=== PATIENT | female | born 1960 | race Caucasian/White ===

== ENCOUNTER → 2021-03-04 10:33 | Outpatient (BNVA) | payer OTHER, SELFPAY | PROVIDERS: Visit Provider Obstetrics & Gynecology | DX: Z12.4 Encounter for screening for malignant neoplasm of cervix (principal) | CPT/HCPCS: 87624 ==

== ENCOUNTER 2022-09-07 05:14 | Observation (INO) | payer OTHER, SELFPAY ==
[2022-09-07] VITALS (24 sets, daily range): BP systolic 114–181; BP diastolic 60–81; PULSE 60–99; RESP 16–24; TEMP 36.3–37.3; O2SAT 90–97; BMI 39.1; BMI 39.6
--- NOTE | 2022-09-07 05:22 | CTR_ITS ---
PROCEDURE INFORMATION: Exam: CT Abdomen And Pelvis With Contrast Exam date and time: 09/07/2022 6:11 AM Age: 62 years old Clinical indication: Abdominal pain; Localized; Right lower quadrant (rlq); Additional info: Rlq pain TECHNIQUE: Imaging protocol: Computed tomography of the abdomen and pelvis with contrast. Radiation optimization: All CT scans at this facility use at least one of these dose optimization techniques: automated exposure control; mA and/or kV adjustment per patient size (includes targeted exams where dose is matched to clinical indication); or iterative reconstruction. Contrast material: OMNI 350; Contrast volume: 100 ml; Contrast route: INTRAVENOUS (IV); REPORTING DATA: Count of CT and Cardiac NM exams in prior 12 months: This patient has received 0 known CTs and 0 known cardiac nuclear medicine studies in the 12 months prior to the current study. COMPARISON: No relevant prior studies available. RADIATION DOSE METRICS: Total DLP (mGy-cm): 960.61 FINDINGS: Lungs: Lung bases are clear. Diaphragm: There is a small sliding-type hiatal hernia. Liver: The liver is normal. Gallbladder and bile ducts: The gallbladder is normal. There is no biliary dilation. Pancreas: The pancreas is unremarkable. Spleen: The spleen is mildly enlarged. There is a 9 mm hypodense nodule in the spleen. Adrenal glands: The adrenal glands are unremarkable. Kidneys and ureters: The kidneys are unremarkable. No hydronephrosis or stones. No ureteral dilation. Stomach and bowel: The stomach is decompressed, preventing meaningful evaluation of wall thickness. The small bowel is nondilated. The colon is unremarkable. Appendix: The appendix is markedly dilated measuring up to 18 mm diameter. There is a 10 mm appendicolith at its origin. There is periappendiceal edema and fascial thickening. No extraluminal gas or fluid collection. Intraperitoneal space: There is no free air or significant intraperitoneal free fluid. Vasculature: The aorta is unremarkable. There is no aneurysm. The portal, splenic and superior mesenteric veins are patent. Lymph nodes: There is no lymphadenopathy in the retroperitoneum, mesentery, pelvis or inguinal regions. Urinary bladder: The urinary bladder is unremarkable. Reproductive: There is no adnexal mass or large cyst. Bones/joints: There is mild degenerative disease of both hips. The bony pelvis is intact. There is mild degenerative disease in the lumbar spine. Soft tissues: The abdominal wall is intact. CT/CT abdomen pelvis w con* [id number] IMPRESSION: 1. Acute appendicitis. No sign of perforation. 2. 9 mm hypodense splenic nodule. For patients without or with history of cancer, recommend follow-up MRI in 6-12 months. 3. Incidental findings above.
--- NOTE | 2022-09-07 05:23 | W.ED.ABDPA2 ---
Documented by User: Marisabel Calvin MD 09/07/22 05:25 HPI - Abdominal Pain General: Chief Complaint: Abdominal Pain Stated Complaint: abd pain Time Seen by Provider: 09/07/22 05:16 Source: patient Mode of arrival: ambulatory Limitations: no limitations History of Present Illness: 62-year-old female who states she has been having lower abdominal pain over the last 12 hours. States pain is very sharp in nature mainly in the right lower quadrant she has had some nausea and vomited once. She rates her pain an 8 out of 10 its much worse with movement and palpation. She denies any fevers denies any dysuria. Associated Symptoms: Reports nausea and vomiting; Denies chills, dysuria and fever(s) Review of Systems Const: Denies: fever(s) or chills Eyes: Denies: eye discomfort ENMT: Denies: throat pain or dental pain Card: Denies: chest pain Resp: Denies: dyspnea GI: Reports: abdominal pain, nausea and vomiting : Denies: dysuria Musc: Denies: neck pain or back pain Skin/Breast: Denies: rash Neuro: Denies: headache(s) PFSH ED PFSH: Medical History Arthritis Asthma Bipolar disorder Cataract Clinical depression COPD (chronic obstructive pulmonary disease) Diabetes Eczema Fibromyalgia GERD (gastroesophageal reflux disease) High risk HPV infection Lichen simplex Psoriasis Urinary incontinence, urge Surgical History H/O oral surgery tongue and back of throat-11/2019-determined non-cancerous from HPV H/O oral surgery removal of damaged tooth H/O right knee surgery H/O shoulder surgery right H/O wisdom tooth extraction History of carpal tunnel surgery Family History Mother CAD (coronary artery disease) Cancer lung cancer Diabetes Father CAD (coronary artery disease) Cancer lung cancer, bladder Diabetes Brother Diabetes Denies family history of Clotting disorder Hyperlipidemia Chronic kidney disease (CKD) Bleeding disorder Physical Exam Const: COMMON NORMALS: patient oriented x3 HENMT: COMMON NORMALS: normocephalic and atraumatic HEAD & SCALP: normocephalic and atraumatic Eye: COMMON NORMALS: conjunctivae normal CONJUNCTIVA: Yes conjunctivae normal Neck/C-Spine: COMMON NORMALS: full ROM and supple Chest: COMMONS NORMALS: normal inspection of the chest Resp: COMMON NORMALS: normal respiratory effort Cardio: COMMON NORMALS: regular rate, regular rhythm and No murmurs present (Cardio) RATE: regular rate RHYTHM: regular rhythm GI: COMMON NORMALS: Normal to inspection, nondistended, normoactive bowel sounds present, Soft to palpation and no masses PALPATION: Yes Soft to palpation and Yes Tenderness to palpation present (GI) Details: RLQ Extremity: COMMON NORMALS: normal to inspection and full ROM Neuro: COMMON NORMALS: patient oriented x3, moves all extremities and no focal motor deficits Psych: COMMON NORMALS: mental status grossly normal, Normal thought process present and cooperative THOUGHT PROCESS: Normal thought process present Skin: COMMON NORMALS: no rashes or lesions noted and no wounds GENERAL SKIN EXAM: no rashes or lesions noted Course Vital Signs: Vital signs: Vital Signs Temperature 98.4 F 09/07/22 05:42 Pulse Rate 76 09/07/22 06:34 Respiratory Rate 16 09/07/22 05:40 Blood Pressure 147/62 09/07/22 07:31 Pulse Oximetry 94 09/07/22 07:31 Oxygen Delivery Me thod Room Air 09/07/22 05:19 MDM - Abdominal Pain Lab Data 09/07/22 05:30 09/07/22 05:30 Labs/Radiology: Radiology Impressions Abdomen/Pelvis CT 09/07/22 05:22 IMPRESSION: 1. Acute appendicitis. No sign of perforation. 2. 9 mm hypodense splenic nodule. For patients without or with history of cancer, recommend follow-up MRI in 6-12 months. 3. Incidental findings above. ADDENDUM: 09/07/22 0731 THIS REPORT CONTAINS FINDINGS THAT MAY BE CRITICAL TO PATIENT CARE. The findings were communicated via written report. Receipt and understanding of the findings was acknowledged by Dr Garcia at 7:30 AM CDT on 09/07/2022. Laboratory Results WBC 11.6 10^3/uL (4.0-10.0) H 09/07/22 05:30 RBC 5.10 10^6/uL (4.1-5.3) 09/07/22 05:30 Hgb 15.3 g/dL (11.5-15.3) 09/07/22 05:30 Hct 45.1 % (37.0-47.0) 09/07/22 05:30 MCV 88.4 fl (81-99) 09/07/22 05:30 MCH 30.0 pg (28.0-34.0) 09/07/22 05:30 MCHC 33.9 g/dL (30.0-36.0) 09/07/22 05:30 RDW 12.0 % (12.1-15.1) L 09/07/22 05:30 Plt Count 273 10^3/cmm (130-400) 09/07/22 05:30 MPV 10.2 fL (7.4-10.4) 09/07/22 05:30 Neut % (Auto) 82.6 % 09/07/22 05:30 Lymph % (Auto) 9.1 % 09/07/22 05:30 [facility] % (Auto) 6.8 % 09/07/22 05:30 Eos % (Auto) 0.9 % 09/07/22 05:30 Baso % (Auto) 0.3 % 09/07/22 05:30 Neut # (Auto) 9.57 10^3/uL (1.8-7.7) H 09/07/22 05:30 Lymph # (Auto) 1.1 10^3/uL (0.8-4.8) 09/07/22 05:30 [facility] # (Auto) 0.8 10^3/uL (0.2-0.9) 09/07/22 05:30 Eos # (Auto) 0.1 10^3/uL (0.0-0.8) 09/07/22 05:30 Baso # (Auto) 0.0 10^3/uL (0.0-0.1) 09/07/22 05:30 Nucleated RBC % (auto) 0 % 09/07/22 05:30 Nucleated RBCs # 0.0 /100WBC 09/07/22 05:30 Sodium 134 mmol/L (136-145) L 09/07/22 05:30 Potassium 4.3 mmol/L (3.5-5.1) 09/07/22 05:30 Chloride 96 mmol/L (98-107) L 09/07/22 05:30 Carbon Dioxide 25 mmol/L (22-29) 09/07/22 05:30 Anion Gap 17.3 (5-19) 09/07/22 05:30 BUN 11 mg/dL (8-23) 09/07/22 05:30 Creatinine 0.5 mg/dL (0.5-0.9) 09/07/22 05:30 GFR Calculation 124.6 mL/min (90-130) 09/07/22 05:30 Glucose 381 mg/dL (65-115) H 09/07/22 05:30 Calculated Osmolality 293 mOsm/kg (285-295) 09/07/22 05:30 Calcium 9.5 mg/dL (8.5-10.5) 09/07/22 05:30 Total Bilirubin 0.5 mg/dL (0.15-1.2) 09/07/22 05:30 AST 13 U/L (0-32) 09/07/22 05:30 ALT 18 U/L (0-33) 09/07/22 05:30 Alkaline Phosphatase 134 U/L (35-105) H 09/07/22 05:30 Total Protein 7.2 g/dL (6.6-8.7) 09/07/22 05:30 Albumin 4.5 g/dL (3.5-5.2) 09/07/22 05:30 Globulin 2.7 g/dL (1.3-4.6) 09/07/22 05:30 Lipase 32 U/L (13-60) 09/07/22 05:30 Urine Color Light yellow (Yellow) 09/07/22 06:33 Urine Appearance Clear (CLEAR) 09/07/22 06:33 Urine pH 6 (5-7) 09/07/22 06:33 Ur Specific [place] 1.015 (1.005-1.030) 09/07/22 06:33 Urine Protein Neg (Negative) 09/07/22 06:33 Urine Glucose (UA) 4+ (Normal) H 09/07/22 06:33 Urine Ketones 2+ (Negative) H 09/07/22 06:33 Urine Blood Neg (Negative) 09/07/22 06:33 Urine Nitrate Negative (Negative) 09/07/22 06:33 Urine Bilirubin Neg (Negative) 09/07/22 06:33 Urine Urobilinogen Neg mg/dL (Negative) 09/07/22 06:33 Ur Leukocyte Esterase Negative (Negative) 09/07/22 06:33 Discharge Plan Discharge Patient Disposition: Admitted As Inpatient Clinical Impression: Acute appendicitis, Uncontrolled diabetes mellitus Condition: Stable Prescriptions: No Action Toujeo Max U-300 SoloStar 300 unit/mL (3 mL) insulin pen 42 unit SUBCUT DAILY omeprazole 20 mg capsule,delayed release(DR/EC) 20 mg PO DAILY albuterol sulfate [ProAir HFA] 90 mcg/actuation HFA aerosol inhaler 2 puff inhalation Q6H PRN bupropion HCl 150 mg tablet extended release 24 hr 150 mg PO QAM diclofenac sodium [Arthritis Pain (diclofenac)] 1 % gel 2 g topical QID Rx Instructions: apply to single elbow, wrist or hand; for hand includes palm/fingers/back of hand vitamin B complex [B Complex-Vitamin B12] Tablet 1 tab PO DAILY biotin 5 mg capsule 5 mg PO DAILY turmeric 400 mg capsule 400 mg PO DAILY clobetasol 0.05 % cream 1 applic topical BID 14 Days Qty: 45 0RF Rx Instructions: use twice daily for two weeks only and then twice a week after that. Referrals: Cj Avalos MD [Staff Physician] - Sign Out Sign Out Data: Patient Sign Out occurred on 09/07/22 at 06:29. Patient's care was discussed, and care was transferred from to Qmaar Garcia DO. 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 [place] [facility] Documented by User: Qamar Garcia DO 09/07/22 07:43 HPI - Abdominal Pain General: Chief Complaint: Abdominal Pain Stated Complaint: abd pain Time Seen by Provider: 09/07/22 05:16 PFSH ED PFSH: Medical History Arthritis Asthma Bipolar disorder Cataract Clinical depression COPD (chronic obstructive pulmonary disease) Diabetes Eczema Fibromyalgia GERD (gastroesophageal reflux disease) High risk HPV infection Lichen simplex Psoriasis Urinary incontinence, urge Surgical History H/O oral surgery tongue and back of throat-11/2019-determined non-cancerous from HPV H/O oral surgery removal of damaged tooth H/O right knee surgery H/O shoulder surgery right H/O wisdom tooth extraction History of carpal tunnel surgery Family History Mother CAD (coronary artery disease) Cancer lung cancer Diabetes Father CAD (coronary artery disease) Cancer lung cancer, bladder Diabetes Brother Diabetes Denies family history of Clotting disorder Hyperlipidemia Chronic kidney disease (CKD) Bleeding disorder Course Vital Signs: Vital signs: Vital Signs Temperature 98.4 F 09/07/22 05:42 Pulse Rate 76 09/07/22 06:34 Respiratory Rate 16 09/07/22 05:40 Blood Pressure 147/62 09/07/22 07:31 Pulse Oximetry 94 09/07/22 07:31 Oxygen Delivery Me thod Room Air 09/07/22 05:19 MDM - Abdominal Pain Medical Decision Making Care assumed at change of shift. 5-year-old female with right lower quadrant abdominal pain began yesterday for last meal was around 8 or 9:00 last night she is not any blood thinners she has untreated diabetes mellitus she reports significant weight loss in last year blood sugar on arrival here is 318. CT shows acute appendicitis. Patient hungry and given another dose of morphine as well as a dose of Zosyn. Discussed with Dr. Puente consult medicine for diabetic control. Medical Records I reviewed the patient's medical records. Lab Data I reviewed the patient's lab results. 09/07/22 05:30 09/07/22 05:30 Labs/Radiology: Radiology Impressions Abdomen/Pelvis CT 09/07/22 05:22 IMPRESSION: 1. Acute appendicitis. No sign of perforation. 2. 9 mm hypodense splenic nodule. For patients without or with history of cancer, recommend follow-up MRI in 6-12 months. 3. Incidental findings above. ADDENDUM: 09/07/22 0731 THIS REPORT CONTAINS FINDINGS THAT MAY BE CRITICAL TO PATIENT CARE. The findings were communicated via written report. Receipt and understanding of the findings was acknowledged by Dr Garcia at 7:30 AM CDT on 09/07/2022. Laboratory Results WBC 11.6 10^3/uL (4.0-10.0) H 09/07/22 05:30 RBC 5.10 10^6/uL (4.1-5.3) 09/07/22 05:30 Hgb 15.3 g/dL (11.5-15.3) 09/07/22 05:30 Hct 45.1 % (37.0-47.0) 09/07/22 05:30 MCV 88.4 fl (81-99) 09/07/22 05:30 MCH 30.0 pg (28.0-34.0) 09/07/22 05:30 MCHC 33.9 g/dL (30.0-36.0) 09/07/22 05:30 RDW 12.0 % (12.1-15.1) L 09/07/22 05:30 Plt Count 273 10^3/cmm (130-400) 09/07/22 05:30 MPV 10.2 fL (7.4-10.4) 09/07/22 05:30 Neut % (Auto) 82.6 % 09/07/22 05:30 Lymph % (Auto) 9.1 % 09/07/22 05:30 [facility] % (Auto) 6.8 % 09/07/22 05:30 Eos % (Auto) 0.9 % 09/07/22 05:30 Baso % (Auto) 0.3 % 09/07/22 05:30 Neut # (Auto) 9.57 10^3/uL (1.8-7.7) H 09/07/22 05:30 Lymph # (Auto) 1.1 10^3/uL (0.8-4.8) 09/07/22 05:30 [facility] # (Auto) 0.8 10^3/uL (0.2-0.9) 09/07/22 05:30 Eos # (Auto) 0.1 10^3/uL (0.0-0.8) 09/07/22 05:30 Baso # (Auto) 0.0 10^3/uL (0.0-0.1) 09/07/22 05:30 Nucleated RBC % (auto) 0 % 09/07/22 05:30 Nucleated RBCs # 0.0 /100WBC 09/07/22 05:30 Sodium 134 mmol/L (136-145) L 09/07/22 05:30 Potassium 4.3 mmol/L (3.5-5.1) 09/07/22 05:30 Chloride 96 mmol/L (98-107) L 09/07/22 05:30 Carbon Dioxide 25 mmol/L (22-29) 09/07/22 05:30 Anion Gap 17.3 (5-19) 09/07/22 05:30 BUN 11 mg/dL (8-23) 09/07/22 05:30 Creatinine 0.5 mg/dL (0.5-0.9) 09/07/22 05:30 GFR Calculation 124.6 mL/min (90-130) 09/07/22 05:30 Glucose 381 mg/dL (65-115) H 09/07/22 05:30 Calculated Osmolality 293 mOsm/kg (285-295) 09/07/22 05:30 Calcium 9.5 mg/dL (8.5-10.5) 09/07/22 05:30 Total Bilirubin 0.5 mg/dL (0.15-1.2) 09/07/22 05:30 AST 13 U/L (0-32) 09/07/22 05:30 ALT 18 U/L (0-33) 09/07/22 05:30 Alkaline Phosphatase 134 U/L (35-105) H 09/07/22 05:30 Total Protein 7.2 g/dL (6.6-8.7) 09/07/22 05:30 Albumin 4.5 g/dL (3.5-5.2) 09/07/22 05:30 Globulin 2.7 g/dL (1.3-4.6) 09/07/22 05:30 Lipase 32 U/L (13-60) 09/07/22 05:30 Urine Color Light yellow (Yellow) 09/07/22 06:33 Urine Appearance Clear (CLEAR) 09/07/22 06:33 Urine pH 6 (5-7) 09/07/22 06:33 Ur Specific [place] 1.015 (1.005-1.030) 09/07/22 06:33 Urine Protein Neg (Negative) 09/07/22 06:33 Urine Glucose (UA) 4+ (Normal) H 09/07/22 06:33 Urine Ketones 2+ (Negative) H 09/07/22 06:33 Urine Blood Neg (Negative) 09/07/22 06:33 Urine Nitrate Negative (Negative) 09/07/22 06:33 Urine Bilirubin Neg (Negative) 09/07/22 06:33 Urine Urobilinogen Neg mg/dL (Negative) 09/07/22 06:33 Ur Leukocyte Esterase Negative (Negative) 09/07/22 06:33 Discharge Plan Discharge Patient Disposition: Admitted As Inpatient Clinical Impression: Acute appendicitis, Uncontrolled diabetes mellitus Condition: Stable Prescriptions: No Action Toujeo Max U-300 SoloStar 300 unit/mL (3 mL) insulin pen 42 unit SUBCUT DAILY omeprazole 20 mg capsule,delayed release(DR/EC) 20 mg PO DAILY albuterol sulfate [ProAir HFA] 90 mcg/actuation HFA aerosol inhaler 2 puff inhalation Q6H PRN bupropion HCl 150 mg tablet extended release 24 hr 150 mg PO QAM diclofenac sodium [Arthritis Pain (diclofenac)] 1 % gel 2 g topical QID Rx Instructions: apply to single elbow, wrist or hand; for hand includes palm/fingers/back of hand vitamin B complex [B Complex-Vitamin B12] Tablet 1 tab PO DAILY biotin 5 mg capsule 5 mg PO DAILY turmeric 400 mg capsule 400 mg PO DAILY clobetasol 0.05 % cream 1 applic topical BID 14 Days Qty: 45 0RF Rx Instructions: use twice daily for two weeks only and then twice a week after that. Referrals: Cj Avalos MD [Staff Physician] - Sign Out Sign Out Data: Patient Sign Out occurred on 09/07/22 at 06:29. Patient's care was discussed, and care was transferred from to Qamar Garcia DO. 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 [place]
[2022-09-07] MEDS: morphine 4 mg/mL SDV 1 mL IVP ×3 (05:36→11:29)
[2022-09-07] MEDS: ondansetron 2 mg/ML SDV 2 mL 4 MG IVP (05:37)
[2022-09-07] MEDS: sodium chloride 0.9% 1,000 ML 999 ML IV (05:37)
[2022-09-07 05:45] LABS: Basophils % 0.3 %; Eosinophils # 0.1 10^3/uL (0.0-0.8); Eosinophils % 0.9 %; Hematocrit 45.1 % (37.0-47.0); Hemoglobin 15.3 g/dL (11.5-15.3); Lymphocytes # 1.1 10^3/uL (0.8-4.8); Lymphocytes % 9.1 %; Mean Corpuscular HGB Conc 33.9 g/dL (30.0-36.0); Mean Corpuscular Volume 88.4 fl (81-99); Mean Platelet Volume 10.2 fL (7.4-10.4); Monocytes # 0.8 10^3/uL (0.2-0.9); Monocytes % 6.8 %; Neutrophils # 9.57 10^3/uL (1.8-7.7); Neutrophils % 82.6 %; Nucleated Red Blood Cells % 0 %; Platelet Count 273 10^3/cmm (130-400); White Blood Count 11.6 10^3/uL (4.0-10.0)
[2022-09-07 06:03] LABS: Alanine Aminotransferase 18 U/L (0-33); Albumin Level 4.5 g/dL (3.5-5.2); Alkaline Phosphatase 134 U/L (35-105); Aspartate Amino Transferase 13 U/L (0-32); Blood Urea Nitrogen 11 mg/dL (8-23); Calcium 9.5 mg/dL (8.5-10.5); Carbon Dioxide 25 mmol/L (22-29); Chloride 96 mmol/L (98-107); Globulin 2.7 g/dL (1.3-4.6); Glomerular Filtration Rate 124.6 mL/min (90-130); Glucose 381 mg/dL (65-115); Lipase 32 U/L (13-60); Osmolality Calculated 293 mOsm/kg (285-295); Sodium 134 mmol/L (136-145); Total Bilirubin 0.5 mg/dL (0.15-1.2); Total Protein 7.2 g/dL (6.6-8.7)
[2022-09-07 06:07] LABS: Anion Gap 17.3 (5-19); Potassium 4.3 mmol/L (3.5-5.1)
[2022-09-07] MEDS: iohexol 350 mg/mL 500 mL Btl (per mL) IV (06:15)
[2022-09-07 06:39] LABS: Add Urine Microscopic? NO; Charge for UA Resulting for Rev
--- NOTE | 2022-09-07 06:55 | PC.NURSE ---
Patient has sleep apnea, oxygen dips down in the 80's and right back to high 90's.
[2022-09-07 06:59] LABS: Bilirubin Urine Neg (Negative); Blood Urine Neg (Negative); Glucose Urine UA 4+ (Normal); Ketones Urine 2+ (Negative); Leukocyte Esterase Urine Negative (Negative); Nitrate Urine Negative (Negative); Protein Urine Neg (Negative); Specific Gravity, Urine 1.015 (1.005-1.030); Urine Appearance Clear (CLEAR); Urine Color Light yellow (Yellow); Urobilinogen Urine Neg (Negative); pH Urine 6 (5-7)
[2022-09-07] MEDS: piperacillin-tazobactam 3.375 GM in sodium chloride 0.9% (plus) 50 ML IV ×2 (07:42→13:56)
--- NOTE | 2022-09-07 07:52 | ECG_ITS ---
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 Measurements Intervals Bob White Rate: 77 P: 46 OR: 201 QRS: -12 QRSD: 83 T: 20 QT: 383 QTc: 436 Interpretive Statements SINUS RHYTHM POSSIBLE LEFT ATRIAL ENLARGEMENT [-0.1mV P-WAVE IN V1/V2] LOW QRS VOLTAGE IN PRECORDIAL LEADS [QRS DEFLECTION < 1.0 mV IN CHEST LEADS] POSSIBLE ANTERIOR MYOCARDIAL INFARCTION , PROBABLY OLD [30 ms Q WAVE IN V3/V4, OR R < 0.2 mV IN V4] INFERIOR MYOCARDIAL INFARCTION , PROBABLY OLD [40+ ms Q WAVE AND/OR ST/T ABNORMALITY IN II/aVF] No previous ECG available for comparison Electronically Signed On 09-07-2022 21:19:42 CDT by Refugio Massey M.D. [email or web address]
[2022-09-07 08:24] LABS: Estmated Average Glucose 344; Hemoglobin A1C 13.6 % (4.0-6.0)
[2022-09-07 08:28] LABS: Thyroid Stimulating Hormone 3.91 uIU/mL (0.27-4.20)
--- NOTE | 2022-09-07 08:31 | P.CONIM_ITS ---
Providers/Reason For Consult Consulting Physician/Specialty*: Josias Rios MD, hospitalist Reason for Consult*: Medical management, diabetes History of Present Illness History of Present Illness Asha Siddiqui is a 62 year old female with history of diabetes, COPD, bipolar disorder who presents from home with history of right lower quadrant pain since approximately 415 yesterday. She states it came in went for a while, but returned with a vengeance this morning. She was having bowel movements up to yesterday. She is still passing a little bit of air. Some chills at home but no recorded fever. Has been nauseated but no vomiting until arriving in the ER. No diarrhea. No blood in stool or black or tarry stools. Denies any allergy to anesthesia. Has been slow to wake up in the past. No bleeding disorders. No history of coronary artery disease. Reports with her COPD she was on oxygen in the past, but this was discontinued quite a while ago. She states she sto pped all of her medicine several years ago, including insulin. She has lost about 100 pounds of weight in the last several years. She has not been following up with glucose checks so is not sure what her blood sugars been running. Review of Systems General: Reports: 10 or more systems reviewed and unremarkable except in HPI and below Card: Denies: chest pain Resp: Denies: dyspnea, productive cough or non-productive cough GI: Reports: abdominal pain, nausea and vomiting; Denies: hematochezia or melena Medications/Allergies Home Medications Medication Instructions Recorded Confirmed Last Taken Type omeprazole 20 mg capsule,delayed 20 mg PO DAILY PRN Heartburn 03/04/21 09/07/22 Unknown History release turmeric 400 mg capsule 400 mg PO DAILY PRN unknown 03/04/21 09/07/22 Unknown History Cbd Oil See Rx Instructions .Route .COMPLEX 09/07/22 09/07/22 Unknown History Tonic Water With Quinine See Rx Instructions .Route .COMPLEX 09/07/22 09/07/22 Unknown History acetaminophen 500 mg tablet 1,000 - 1,500 mg PO Q6H PRN Pain 09/07/22 09/07/22 Unknown History albuterol sulfate 90 mcg/actuation 2 puff inhalation .EVERY 4-6 HOURS 09/07/22 0 09/07/22 Unknown History aerosol inhaler PRN Shortness Of Breath ascorbic acid 1,000 1 ea PO DAILY 09/07/22 09/07/22 Unknown History aw-[id number]-urcavygs powder effervescent pack (Emergen-C) benzocaine 5 %-resorcinol 2 % 1 applic topical BID PRN unknown 09/07/22 09/07/22 Unknown History topical cream (Vagisil) nystatin 100,000 unit/gram topical 1 applic topical TID till healed 09/07/22 09/07/22 Unknown History powder oxycodone-acetaminophen 5 mg-325 1 tab PO .ONE TIME DOSE 09/07/22 09/07/22 09/06/22 History mg tablet old rx per pt Allergies Allergy/AdvReac Type Severity Reaction Status Date / Time aspirin Allergy Severe face Verified 09/07/22 05:24 swelling, breathing issues codeine Allergy Severe hallucinati Verified 09/07/22 05:24 on ibuprofen [From Motrin] Allergy Severe facial Verified 09/07/22 05:24 swelling, breathing issues tolmetin [From Tolectin] Allergy Severe facial Verified 09/07/22 05:24 swelling, breathing issues PFSH Acute PFSH: Medical History (Updated 09/07/22 @ 08:37 by Josias Rios MD) Arthritis Asthma Bipolar disorder Cataract Clinical depression COPD (chronic obstructive pulmonary disease) Diabetes Eczema Fibromyalgia GERD (gastroesophageal reflux disease) High risk HPV infection Lichen simplex Psoriasis Urinary incontinence, urge Surgical History H/O oral surgery tongue and back of throat-11/2019-determined non-cancerous from HPV H/O oral surgery removal of damaged tooth H/O right knee surgery H/O shoulder surgery right H/O wisdom tooth extraction History of carpal tunnel surgery Family History Mother CAD (coronary artery disease) Cancer lung cancer Diabetes Father CAD (coronary artery disease) Cancer lung cancer, bladder Diabetes Brother Diabetes Denies family history of Clotting disorder Hyperlipidemia Chronic kidney disease (CKD) Bleeding disorder Vitals/I&O/Wt Last Vital Signs Temp 98.4 F 09/07/22 05:42 Pulse 80 09/07/22 08:16 Resp 18 09/07/22 07:42 BP 141/72 09/07/22 08:16 Pulse Ox 96 09/07/22 08:16 O2 Del Method Room Air 09/07/22 05:19 Weight last 48 hrs Weight 93.894 kg Physical Exam Narrative: General exam is a white female, conversant, reporting right lower quadrant pain HEENT: Atraumatic normocephalic. Oropharynx clear Neck is supple no lymphadenopathy thyromegaly Cardiovascular regular rate and rhythm without murmur Lungs clear. Diminished breath sounds are noted bilaterally. No wheezes or crackles Abdomen is soft positive bowel sounds. No obvious organomegaly. Tenderness is noted in the right lower quadrant. exams deferred Extremities no cyanosis clubbing edema, cap refill brisk Skin no rash Neuro no obvious focal deficits. Data 09/07/22 05:30 09/07/22 05:30 Other Labs: EKG which I reviewed demonstrates sinus rhythm, rate of about 80, borderline left axis deviation, poor R wave progression, Q waves noted inferiorly. LFTs are normal with exception of alk phos of 134 I have ordered an A1c and is 13.6 I ordered a TSH which was normal at 3.91 Urinalysis with 4+ glucose I reviewed her CT as well. Her bladder is full. I see the concern regarding appendicitis. A fair amount of stool is in the colon. Small nodule in spleen, with radiology recommending follow-up A&P Assessment and plan (1) Acute appendicitis: Patient presents to the emergency department with acute appendicitis She was started on Zosyn, will continue CBC, BMP tomorrow Surgery will determine approach. (2) Uncontrolled diabetes mellitus: Patient has uncontrolled diabetes per her A1c Initiate moderate sliding scale insulin When starting diet consistent carb diet When discharging will review what medication should be started, and arrange outpatient follow-up TSH was checked and normal (3) COPD (chronic obstructive pulmonary disease): DuoNeb as needed will be initiated (4) Bipolar disorder: Patient reports on no medicine. States control is fair currently Plan History of GERD. Initiate Protonix IV Other medical problems as listed in past medical history Thank you for this consultation I will defer DVT prophylaxis to primary as patient may be going to surgery soon. Consult Attestations Medical Necessity Statement: As per primary Diagnoses Acute appendicitis K35.80 Uncontrolled diabetes mellitus COPD (chronic obstructive pulmonary disease) J44.9 Bipolar disorder F31.9 Time Spent (min) 37
--- NOTE | 2022-09-07 08:39 | PC.PHAR ---
pt states she takes care of her own medications-pt states she no longer uses her insulin-pt states she stop using it in [id number] last filled basaglar 80 units daily 04/19/2021-pt states she had an old rx for percocet and took a one time dose on 09/06/22-
[2022-09-07 11:27] LABS: Glucose Point of Care 295 mg/dL (70-110)
[2022-09-07] MEDS: heparin 5,000 unit/mL INJ 1 mL 5000 UNIT SUBCUT (11:29)
[2022-09-07] MEDS: sodium chloride 0.9% 1,000 ML 100 ML IV ×2 (11:40→21:36)
[2022-09-07] MEDS: insulin lispro 100 unit/1 mL SUBCUT ×2 (12:51→21:37)
[2022-09-07] MEDS: pantoprazole 40 mg SDV IVP (12:52)
[2022-09-07] MEDS: diphenhydrAMINE 50 mg/mL SDV 1mL IVP (15:42)
[2022-09-07 16:11] LABS: Glucose Point of Care 209 mg/dL (70-110)
--- NOTE | 2022-09-07 16:23 | ANES.PREANE2 ---
Pre-Anesthetic Assessment Height/Weight: Height 1.55 m Weight 95.073 kg Temp Pulse Resp BP Pulse Ox O2 Del Method 98.6 F 78 16 120/68 95 Nasal Cannula 09/07/22 12:00 09/07/22 12:00 09/07/22 12:00 09/07/22 12:00 09/07/22 12:00 09/07/22 12:00 Operation Date: 09/07/22 16:45 Proposed Procedures p Laparoscopic Appendectomy(Not Applicable) - Raul Puente DO Familial anesthetic complications: None Was Beta Amirah taken within 24 hours: N/A Was Clonidine taken within 24 hours: N/A Last intake: > 8hrs Social No alcohol and No tobacco Exam alert, oriented x 3, clear to auscultation bilaterally and regular rate & rhythm Airway Mallampati: Class III Dentition: full Pulmonary Chronic Obstructive Pulmonary Disease GI Gastroesophageal Reflux Disease Metabolic Diabetes Mellitus Anesthetic Plan ASA status: 3 Anesthesia: General Risk of > 500 ml blood loss (7ml/kg in children): No Medications/Allergies Home Medications Medication Instructions Recorded Confirmed Last Taken Type omeprazole 20 mg capsule,delayed 20 mg PO DAILY PRN Heartburn 03/04/21 09/07/22 Unknown History release turmeric 400 mg capsule 400 mg PO DAILY PRN unknown 03/04/21 09/07/22 Unknown History Cbd Oil See Rx Instructions .Route .COMPLEX 09/07/22 09/07/22 Unknown History Tonic Water With Quinine See Rx Instructions .Route .COMPLEX 09/07/22 09/07/22 Unknown History acetaminophen 500 mg tablet 1,000 - 1,500 mg PO Q6H PRN Pain 09/07/22 09/07/22 Unknown History albuterol sulfate 90 mcg/actuation 2 puff inhalation .EVERY 4-6 HOURS 09/07/22 09/07/22 Unknown History aerosol inhaler PRN Shortness Of Breath ascorbic acid 1,000 1 ea PO DAILY 09/07/22 09/07/22 Unknown History lk-ahdnidawiode-zgtwmbrp powder effervescent pack (Emergen-C) benzocaine 5 %-resorcinol 2 % 1 applic topical BID PRN unknown 09/07/22 09/07/22 Unknown History topical cream (Vagisil) nystatin 100,000 unit/gram topical 1 applic topical TID till healed 09/07/22 09/07/22 Unknown History powder oxycodone-acetaminophen 5 mg-325 1 tab PO .ONE TIME DOSE 09/07/22 09/07/22 09/06/22 History mg tablet old rx per pt Allergies Allergy/AdvReac Type Severity Reaction Status Date / Time aspirin Allergy Severe face Verified 09/07/22 05:24 swelling, breathing issues codeine Allergy Severe hallucinati Verified 09/07/22 05:24 on ibuprofen [From Motrin] Allergy Severe facial Verified 09/07/22 05:24 swelling, breathing issues tolmetin [From Tolectin] Allergy Severe facial Verified 09/07/22 05:24 swelling, breathing issues Current Medications Generic Name Dose Route Start Last Admin Trade Name Freq PRN Reason Stop Dose Admin Sodium Chloride 1,000 mls @ 100 mls/hr 09/07/22 11:02 09/07/22 11:40 Sodium Chloride 0.9% IV 100 mls/hr .Q10H LAUREN Administration Insulin Human Lispro 0 unit 09/07/22 11:02 09/07/22 12:52 Insulin Lispro 100 Unit/1 Ml SUBCUT Not Given WM&BEDTIME LAUREN Protocol Pantoprazole Sodium 40 mg 09/07/22 12:00 09/07/22 12:52 Pantoprazole 40 Mg Sdv IVP 40 mg Q24H LAUREN Administration PFSH Anesthesia Medical History (Updated 09/07/22 @ 08:37 by Josias Rios MD) Arthritis Asthma Bipolar disorder Cataract Clinical depression COPD (chronic obstructive pulmonary disease) Diabetes Eczema Fibromyalgia GERD (gastroesophageal reflux disease) High risk HPV infection Lichen simplex Psoriasis Urinary incontinence, urge Surgical History H/O oral surgery tongue and back of throat-11/2019-determined non-cancerous from HPV H/O oral surgery removal of damaged tooth H/O right knee surgery H/O shoulder surgery right H/O wisdom tooth extraction History of carpal tunnel surgery Family History Mother CAD (coronary artery disease) Cancer lung cancer Diabetes Father CAD (coronary artery disease) Cancer lung cancer, bladder Diabetes Brother Diabetes Denies family history of Clotting disorder Hyperlipidemia Chronic kidney disease (CKD) Bleeding disorder Data Anesthesia 09/07/22 05:30 05/04/23 05:30 Short CBC 09/07/22 Range/Units 05:30 WBC 11.6 H (4.0-10.0) 10^3/uL Hgb 15.3 (11.5-15.3) g/dL Hct 45.1 (37.0-47.0) % MCV 88.4 (81-99) fl Plt Count 273 (130-400) 10^3/cmm Neut % (Auto) 82.6 % Neut # (Auto) 9.57 H (1.8-7.7) 10^3/uL BMP 09/07/22 05:30 Sodium 134 L Potassium 4.3 Chloride 96 L Carbon Dioxide 25 BUN 11 Creatinine 0.5 Glucose 381 H Calcium 9.5 Liver Function 09/07/22 Range/Units 05:30 Total Bilirubin 0.5 (0.15-1.2) mg/dL AST 13 (0-32) U/L ALT 18 (0-33) U/L Alkaline Phosphatase 134 H (35-105) U/L Albumin 4.5 (3.5-5.2) g/dL Urine 09/07/22 Range/Units 06:33 Urine Color Light yellow (Yellow) Urine Appearance Clear (CLEAR) Urine pH 6 (5-7) Ur Specific [place] 1.015 (1.005-1.030) Urine Protein Neg (Negative) Urine Glucose (UA) 4+ H (Normal) Urine Ketones 2+ H (Negative) Urine Nitrate Negative (Negative) Urine Bilirubin Neg (Negative) Ur Leukocyte Esterase Negative (Negative) Cardiac Studies: No Data to Display
[2022-09-07] MEDS: sodium chloride 0.9% 1,000 ML 30 ML IV (16:28)
--- NOTE | 2022-09-07 16:41 | P.HP_ITS ---
Providers/Chief Complaint Admitting Physician: Raul Puente DO Chief Complaint: abd pain History of Present Illness This is a very pleasant 62-year-old uncontrolled diabetic who presented to the hospital with a 1 day history of right lower quadrant abdominal pain. The pain is sharp and constant and radiates to her back. She denies any nausea or vomiting. Denies any diarrhea or constipation. CT abdomen pelvis showed acute appendicitis Review of Systems General: Reports: 10 or more systems reviewed and unremarkable except in HPI and below Medications/Allergies Home Medications Medication Instructions Recorded Confirmed Last Taken Type omeprazole 20 mg capsule,delayed 20 mg PO DAILY PRN Heartburn 03/04/21 09/07/22 Unknown History release turmeric 400 mg capsule 400 mg PO DAILY PRN unknown 03/04/21 09/07/22 Unknown History Cbd Oil See Rx Instructions .Route .COMPLEX 09/07/22 09/07/22 Unknown History Tonic Water With Quinine See Rx Instructions .Route .COMPLEX 09/07/22 09/07/22 Unknown History acetaminophen 500 mg tablet 1,000 - 1,500 mg PO Q6H PRN Pain 09/07/22 09/07/22 Unknown History albuterol sulfate 90 mcg/actuation 2 puff inhalation .EVERY 4-6 HOURS 09/07/22 09/07/22 Unknown History aerosol inhaler PRN Shortness Of Breath ascorbic acid 1,000 1 ea PO DAILY 09/07/22 09/07/22 Unknown History cs-klmrzvgxzzgl-kcsvityj powder effervescent pack (Emergen-C) benzocaine 5 %-resorcinol 2 % 1 applic topical BID PRN unknown 09/07/22 09/07/22 Unknown History topical cream (Vagisil) nystatin 100,000 unit/gram topical 1 applic topical TID till healed 09/07/22 09/07/22 Unknown History powder oxycodone-acetaminophen 5 mg-325 1 tab PO .ONE TIME DOSE 09/07/22 09/07/22 09/06/22 History mg tablet old rx per pt Allergies Allergy/AdvReac Type Severity Reaction Status Date / Time aspirin Allergy Severe face Verified 09/07/22 05:24 swelling, breathing issues codeine Allergy Severe hallucinati Verified 09/07/22 05:24 on ibuprofen [From Motrin] Allergy Severe facial Verified 09/07/22 05:24 swelling, breathing issues tolmetin [From Tolectin] Allergy Severe facial Verified 09/07/22 05:24 swelling, breathing issues PFSH Acute PFSH: Medical History Arthritis Asthma Bipolar disorder Cataract Clinical depression COPD (chronic obstructive pulmonary disease) Diabetes Eczema Fibromyalgia GERD (gastroesophageal reflux disease) High risk HPV infection Lichen simplex Psoriasis Urinary incontinence, urge Surgical History H/O oral surgery tongue and back of throat-11/2019-determined non-cancerous from HPV H/O oral surgery removal of damaged tooth H/O right knee surgery H/O shoulder surgery right H/O wisdom tooth extraction History of carpal tunnel surgery Family History Mother CAD (coronary artery disease) Cancer lung cancer Diabetes Father CAD (coronary artery disease) Cancer lung cancer, bladder Diabetes Brother Diabetes Denies family history of Clotting disorder Hyperlipidemia Chronic kidney disease (CKD) Bleeding disorder Vitals/I&O/Wt Last Vital Signs Temp 99.1 F 09/07/22 16:32 Pulse 84 09/07/22 16:32 Resp 16 09/07/22 16:32 BP 140/67 09/07/22 16:32 Pulse Ox 97 09/07/22 16:32 O2 Del Method Nasal Cannula 09/07/22 16:32 O2 Flow Rate 3 09/07/22 16:32 09/07/22 09/07/22 09/07/22 06:59 14:59 22:59 Intake Total 480 / 480 Balance 480 / 480 Weight last 48 hrs Weight 209 lb 9.6 oz Weight 207 lb Physical Exam Narrative: General : Patient is well developed , no acute distress, oriented x3 Head : Normal cephalic, a-traumatic. Ears : Pinnae and external canal are normal. Hearing is normal. Eyes : PERRLA, Sclera and injection are normal. No conjunctival discharge. Nose : Mucous membranes are without erythema. Throat : buccal mucosa is normal, gums are without significant recession or hypertrophy. Lungs : Equal chest rise bilaterally, no use of accessory muscles, trachea is midline. Cor : Rate and rhythm are normal. Abdomen : Soft, ND, tender to palpation right lower quadrant, negative Rovsing's, no g/r/m Extremities : No edema, no cyanosis or clubbing, dorsalis pedis pulses are present bilaterally, non-tender to palpation of calves. Upper extremities are normal bilaterally. Back : non-tender to palpation, no CVA tenderness. Neuro : CN II - XII intact, Upper and lower extremities have equal and full strength Data 09/07/22 05:30 09/07/22 05:30 A&P Assessment and plan (1) Acute appendicitis: Plan Placed in observation Consult hospitalist IV fluids Antibiotics Laparoscopic Appendectomy The risks and benefits of the procedure, including but not limited to, bleeding, infection, scar, numbness, pain, damage to surrounding structures, conversion to an open procedure, were explained to the patient. He is understanding of the risks and wishes to proceed. Attestations Medical Necessity Statement*: home Coding Level of Care Code Acute Code for [facility] Diagnoses Acute appendicitis K35.80
[2022-09-07] MEDS: lidocaine-epi 2% 20 mL INJ INJECTION (18:00)
--- NOTE | 2022-09-07 18:08 | SUR.OPER ---
1740 Zosyn 3.375gm was given at 1356 on 09/07/22 per JUL. stated to Dr. Morales that pt had Zosyn. ASK DR. MORALES IF HE WANTED THE LEVAQUIN 750MG AND FLAGYL 500MG (currently on hold, and to be started at 1545) to be given before surgery, and dr. morales stated No.
--- NOTE | 2022-09-07 18:40 | P.OP_ITS ---
Operative Report Date of procedure: September 07, 2022 Pre-op diagnosis: Acute appendicitis Post-op diagnosis: same Procedure done: Laparoscopic appendectomy Implants: 19 Belgian Heriberto drain Specimens removed/disposition: Appendix Surgeon: Dr. Raul Puente DO Anesthesia: General Estimated blood loss (mL): 20 Complications: None apparent Findings: Severe appendicitis, perhaps gangrenous Brief History: This is a 62-year-old female who came into the ER with abdominal pain. CT showed acute appendicitis. Laparoscopic appendectomy was indicated. The risk and benefits were explained and documented. Procedure: Patient was wheeled into the operative room and placed on the OR table in a supine position. Abdomen was inspected prepped and draped in usual sterile fashion. Time-out was performed and all present were in agreement. A 15 blade scalp was used to make a stab incision in the left upper quadrant and intra- abdominal insufflation was achieved using a Veress needle. After localizing the tissue incisions were made and a 12 millimeter trocar was placed into the umbilicus as well as a 5mm in the right lower quadrant and a 5 mm in the left lower quadrant . The appendix was identified and was severely inflamed and perhaps somewhat gangrenous. No evidence of perforation or abscess.. I used the Voyant to ligate the mesoappendix at the base. I used an Endo Clip to clip the appendiceal artery. I then used 2 PDS endo-loops to snare the base of the appendix. I then used the Voyant to ligate the appendix distally. The appendix was removed from the abdomen using an Endo-Catch bag through the umbilical incision. I examined the abdomen and no further pathology was identified. Hemostasis was noted. A 19 Belgian Heriberto drain was placed along the right gutter and into the pelvis coming out of the left lower quadrant. The drain in place with 3-0 silk. I then closed the umbilical site with a Silviano-Rosanna and 0 Vicryl suture in a figure of 8 fashion. All ports removed. Skin was washed and dried. Incisions were closed with 4 O Vicryl in a subcuticular interrupted fashion. Skin glue was applied. Patient tolerated the procedure well.
--- NOTE | 2022-09-07 19:49 | SUR.PHASEI ---
1905 Pt with bilat SCDs on and placed on pump. Pump working.
[2022-09-07 20:31] LABS: Glucose Point of Care 294 mg/dL (70-110)
[2022-09-07] MEDS: metroNIDAZOLE IV 500 MG/100 ML PREMIX 100 MG IV (23:47)
[2022-09-08] VITALS (14 sets, daily range): BP systolic 110–138; BP diastolic 65–72; PULSE 71–93; RESP 15–18; TEMP 36.8–37.6; O2SAT 91–99
[2022-09-08] MEDS: oxyCODONE-APAP 5-325 mg Tablet 1 TAB PO ×4 (04:21→20:56)
[2022-09-08 05:02] LABS: Basophils % 0.2 %; Hematocrit 42.3 % (37.0-47.0); Hemoglobin 13.8 g/dL (11.5-15.3); Lymphocytes # 0.7 10^3/uL (0.8-4.8); Lymphocytes % 5.5 %; Mean Corpuscular HGB Conc 32.6 g/dL (30.0-36.0); Mean Corpuscular Hemoglobin 30.1 pg (28.0-34.0); Mean Corpuscular Volume 92.2 fl (81-99); Mean Platelet Volume 9.8 fL (7.4-10.4); Monocytes # 1.2 10^3/uL (0.2-0.9); Monocytes % 9.5 %; Neutrophils # 10.55 10^3/uL (1.8-7.7); Neutrophils % 84.3 %; Nucleated Red Blood Cells % 0 %; Platelet Count 208 10^3/cmm (130-400); Red Blood Count 4.59 10^6/uL (4.1-5.3); Red Cell Distribution Width 12.4 % (12.1-15.1); White Blood Count 12.5 10^3/uL (4.0-10.0)
[2022-09-08 05:23] LABS: Alanine Aminotransferase 9 U/L (0-33); Albumin Level 3.4 g/dL (3.5-5.2); Alkaline Phosphatase 98 U/L (35-105); Anion Gap 17.2 (5-19); Aspartate Amino Transferase 8 U/L (0-32); Blood Urea Nitrogen 9 mg/dL (8-23); Calcium 8.6 mg/dL (8.5-10.5); Carbon Dioxide 22 mmol/L (22-29); Chloride 104 mmol/L (98-107); Globulin 2.7 g/dL (1.3-4.6); Glucose 274 mg/dL (65-115); Osmolality Calculated 296 mOsm/kg (285-295); Potassium 4.2 mmol/L (3.5-5.1); Sodium 139 mmol/L (136-145); Total Bilirubin 0.5 mg/dL (0.15-1.2); Total Protein 6.1 g/dL (6.6-8.7)
[2022-09-08 05:56] LABS: Glucose Point of Care 280 mg/dL (70-110)
[2022-09-08] MEDS: sodium chloride 0.9% 1,000 ML 100 ML IV (06:18)
[2022-09-08 06:29] LABS: Glucose Point of Care 280 mg/dL (70-110)
--- NOTE | 2022-09-08 07:32 | PM.PN ---
Subjective Subjective: See reports she is doing okay this morning. Think she can eat breakfast. Has passed some gas. Pain is under control. Medications: Reviewed: Yes Vitals/I&O/Wt Last Vital Signs Temp 98.4 F 09/08/22 04:00 Pulse 84 09/08/22 06:00 Resp 18 09/08/22 04:21 BP 126/70 09/08/22 04:00 Pulse Ox 95 09/08/22 04:00 O2 Del Method Room Air 09/08/22 04:00 O2 Flow Rate 2.5 09/07/22 21:19 09/07/22 09/08/22 09/08/22 22:59 06:59 14:59 Intake Total 1143.333 / 1673.333 970 / 2643.333 Output Total Balance 1133.333 / 1663.333 970 / 2633.333 Weight last 48 hrs Weight 95.073 kg Weight 93.894 kg Physical Exam Narrative: General exam stress Cardiovascular regular rate and rhythm without murmur Lungs clear. Diminished breath sounds are noted bilaterally. No wheezes or crackles Abdomen is noted. Drain noted. Serosanguineous drainage in YANY Extremities no cyanosis clubbing edema, cap refill brisk Data 09/08/22 04:45 09/08/22 04:45 A&P Assessment and plan (1) Acute appendicitis: Patient presents to the emergency department with acute appendicitis She was started on Zosyn, and there was concern of possible allergy with skin rash. Changed to Levaquin and Flagyl. He is now postoperative day #1 well CBC, BMP while in hospital Reduce IV fluids Surgery will determine course of IV antibiotics, discharge plan following acute appendicitis. (2) Uncontrolled diabetes mellitus: Patient has uncontrolled diabetes per her A1c Currently on moderate sliding scale Add Lantus 20 units daily Currently on a consistent carb diet When discharging will review what medication should be started, and arrange outpatient follow-up she wishes to follow-up with Dr. Piedra who she is seen recently TSH was checked and normal (3) COPD (chronic obstructive pulmonary disease): DuoNeb as needed will be initiated (4) Bipolar disorder: Patient reports on no medicine. States control is fair currently Plan History of GERD. May change Protonix to p.o. Other medical problems as listed in past medical history Thank you for this consultation Heparin for DVT prophylaxis Attestations Medical Necessity Statement*: As per primary Coding Level of Care Code Acute Code for [facility] Diagnoses Acute appendicitis K35.80 Uncontrolled diabetes mellitus COPD (chronic obstructive pulmonary disease) J44.9 Bipolar disorder F31.9
[2022-09-08] MEDS: heparin 5,000 unit/mL INJ 1 mL 5000 UNIT SUBCUT ×2 (08:10→20:15)
[2022-09-08] MEDS: insulin lispro 100 unit/1 mL SUBCUT ×3 (08:12→21:00)
[2022-09-08] MEDS: insulin glargine 100 units/1 mL 20 UNIT SUBCUT (08:12)
[2022-09-08] MEDS: metroNIDAZOLE IV 500 MG/100 ML PREMIX 100 MG IV ×3 (08:14→22:46)
--- NOTE | 2022-09-08 10:12 | PC.CHAP ---
Pastoral Care Encounter/Spiritual Assessment Type of Contact [] Declined ux research associate visit [] Patient/Family/Request visit [] Outpatient visit [] Follow-up visit [] Physician referral [] Code/Alert [x] Routine visit [] Staff referral [] Actively dying [] Patient sleeping [] Family support [] [] Out of room [] Palliative care [] [] Receiving care in room [] Pre-surgical visit [] Trauma [] Long length of stay [] ICU visit [] Other: Relational/Emotional Strength [x] Patient feels connected with others/family/visitors/staff [] Distress [] Loneliness/isolation [] Abandonment Spirituality of Patient [x] Person of Radha [] Attends Moravian of their Radha [x] Believes in Prayer [] Reads Bible or Christianity materials [] There are Spiritual issues to be addressed Creative Services Coordinator Interventions [x] Prayer [] Active listening [] Non-anxious presence [] Spiritual/emotional support [] Crisis/trauma care [] Spiritual counseling [] Bereavement support [] Provided bereavement packet [] Provided Bible/devotional materials [] Provided toy/stuffed animal, coloring book to patient or family member [] Provided Communion [] Anointing/[place] [] Salvation [] Completed spiritual assessment [] Other: Impact on Illness or Injury [] Angry [] Fearful [] Anxious [] Often cries [] Exhaustion [] Unable to work [] Unable to attend scientology [] Unable to walk/stand [] Unable to read [] Unable to drive [] Unable to eat/drink [] Unable to sleep [] Unable to be with family [] Patient intubated [] Other: Summary Time spent with patient 10 min
[2022-09-08] MEDS: pantoprazole DR 40 mg Tablet PO (10:25)
--- NOTE | 2022-09-08 11:28 | PM.PN ---
Subjective Subjective: Patient seen and examined. Still having pain but symptoms have improved. Vitals/I&O/Wt Last Vital Signs Temp 98.2 F 09/08/22 08:00 Pulse 84 09/08/22 08:47 Resp 18 09/08/22 10:26 BP 125/68 09/08/22 08:00 Pulse Ox 96 09/08/22 08:47 O2 Del Method Nasal Cannula 09/08/22 08:47 O2 Flow Rate 2 09/08/22 08:47 09/07/22 09/08/22 09/08/22 22:59 06:59 14:59 Intake Total 1143.333 / 1673.333 970 / 2643.333 580 / 580 Output Total Balance 1133.333 / 1663.333 970 / 2633.333 580 / 580 Weight last 48 hrs Weight 209 lb 9.6 oz Weight 207 lb Physical Exam Narrative: Abdomen: Soft, nondistended, appropriately tender, no guarding rebound or masses Incisions intact without erythema or exudate Drain serosanguineous Data 09/08/22 04:45 09/08/22 04:45 A&P Assessment and plan (1) Acute appendicitis: Plan Postop day #1 status post laparoscopic appendectomy. Appendix was gangrenous Keep 1 more day for IV antibiotics then discharged home on 7 to 10 days of Augmentin Regular diet Attestations Medical Necessity Statement*: Patient requires at least 1 more night in the hospital for IV antibiotics following appendectomy Coding Level of Care Code Acute Code for [facility] Diagnoses Acute appendicitis K35.80
[2022-09-08 11:39] LABS: Glucose Point of Care 270 mg/dL (70-110)
[2022-09-08] MEDS: levofloxacin-dextrose 5 % 750 MG/150 ML PREMIX 100 MG IV (16:47)
[2022-09-08 17:33] LABS: Glucose Point of Care 216 mg/dL (70-110)
[2022-09-08 20:52] LABS: Glucose Point of Care 259 mg/dL (70-110)
[2022-09-08] MEDS: ondansetron 2 mg/ML SDV 2 mL 4 MG IVP (21:22)
[2022-09-08 23:35] LABS: Glucose Point of Care 185 mg/dL (70-110)
[2022-09-09] VITALS (13 sets, daily range): BP systolic 110–135; BP diastolic 67–75; PULSE 78–97; RESP 15–18; TEMP 36.4–37.6; O2SAT 90–98
[2022-09-09] MEDS: sodium chloride 0.9% 1,000 ML 50 ML IV (01:53)
[2022-09-09] MEDS: oxyCODONE-APAP 5-325 mg Tablet 1 TAB PO ×4 (04:33→20:21)
[2022-09-09 07:35] LABS: Glucose Point of Care 254 mg/dL (70-110)
[2022-09-09] MEDS: heparin 5,000 unit/mL INJ 1 mL 5000 UNIT SUBCUT ×2 (09:16→19:26)
[2022-09-09] MEDS: insulin lispro 100 unit/1 mL SUBCUT ×4 (09:19→21:21)
[2022-09-09] MEDS: insulin glargine 100 units/1 mL 20 UNIT SUBCUT (09:19)
[2022-09-09] MEDS: metroNIDAZOLE IV 500 MG/100 ML PREMIX 100 MG IV ×2 (09:20→18:12)
[2022-09-09] MEDS: pantoprazole DR 40 mg Tablet PO (09:22)
[2022-09-09 11:21] LABS: Basophils % 0.3 %; Eosinophils # 0.1 10^3/uL (0.0-0.8); Eosinophils % 0.7 %; Hematocrit 40.3 % (37.0-47.0); Hemoglobin 12.8 g/dL (11.5-15.3); Lymphocytes # 0.7 10^3/uL (0.8-4.8); Lymphocytes % 7.9 %; Mean Corpuscular HGB Conc 31.8 g/dL (30.0-36.0); Mean Corpuscular Hemoglobin 29.2 pg (28.0-34.0); Mean Platelet Volume 10.3 fL (7.4-10.4); Monocytes # 0.6 10^3/uL (0.2-0.9); Monocytes % 7.3 %; Neutrophils % 83.5 %; Nucleated Red Blood Cells % 0 %; Platelet Count 214 10^3/cmm (130-400); Red Blood Count 4.38 10^6/uL (4.1-5.3); Red Cell Distribution Width 12.6 % (12.1-15.1); White Blood Count 8.8 10^3/uL (4.0-10.0)
[2022-09-09 11:28] LABS: Glucose Point of Care 297 mg/dL (70-110)
[2022-09-09 11:38] LABS: Anion Gap 13.8 (5-19); Blood Urea Nitrogen 9 mg/dL (8-23); Calcium 8.2 mg/dL (8.5-10.5); Carbon Dioxide 23 mmol/L (22-29); Chloride 99 mmol/L (98-107); Glomerular Filtration Rate 124.6 mL/min (90-130); Glucose 304 mg/dL (65-115); Osmolality Calculated 284 mOsm/kg (285-295); Potassium 3.8 mmol/L (3.5-5.1); Sodium 132 mmol/L (136-145)
--- NOTE | 2022-09-09 13:24 | P.PN_ITS ---
Subjective Subjective: Seen this AM reports was able to tolerate PO. not happy with car rich diabetic diet passing some gas. pain under control stating she is not ready to go home. desires one more night. Medications: Reviewed: Yes Vitals/I&O/Wt Last Vital Signs Temp 98 F 09/09/22 11:54 Pulse 83 09/09/22 11:54 Resp 16 09/09/22 11:54 BP 120/67 09/09/22 11:54 Pulse Ox 91 09/09/22 11:54 O2 Del Method Room Air 09/09/22 08:23 O2 Flow Rate 1.5 09/09/22 03:21 09/08/22 09/09/22 09/09/22 22:59 06:59 14:59 Intake Total 1490 / 2550 100 / 2650 850 / 850 Output Total Balance 1490 / 2550 100 / 2650 825 / 825 Physical Exam Narrative: General: AOx3, no acute distress, well developed, well nourished, appears stated age psych: appropriate mood and affect. good judgment and insight. No suicidal or homicidal ideation. Head: atraumatic, normocephalic, no mass/lesions Eyes: conjunctiva clear w/o exudate or hemorrhage. non-icteric, EOM intact, PERRLA. no signs of nystagmus Nose: nasal mucosa pink, septum midline Oropharynx: poor dentition, pink moist mucosa, non-deviated tongue, no buccal nodules/lesions. no pharyngeal exudate Neck: FROM, no lymphadenopathy CVD: RRR, normal S1 and S2, no M/R/G. 2+ pulse x 4 extremities, no JVD, no carotid bruit. Lungs: clear lung sounds in all davies, no rhonchi, wheezing, rales. Abdomen: obse, post-surgical abdomen, no drain, multiple incision sites w/o drainage or bleeding, ND, soft, NABS. No hepatosplenomegaly, no mass. umbilicus midline w/o herniation : not done on todays examination Rectal: not done on todays examination Spine: no visible deformities, FROM, 5/5 strength, Extremities: FROM and 5/5 strength in BUE and BLE. Neuro: CNII-XII grossly intact. No atrophy, weakness, tremors or clonus.?no sensory abnormalities. Skin:? as above no rash, vesicles, lesions. Data 09/09/22 10:33 09/09/22 10:33 A&P Assessment and plan (1) Acute appendicitis: Patient presented to ED with acute appendicitis. started on zosyn. Changed to Levaquin and Flagyl 2/2 rash POD #2. followed by Dr. Puente tolerating PO well IV Abx x 1 day then augmentin (2) Uncontrolled diabetes mellitus: Patient has uncontrolled diabetes per her A1c A1c of 13.6 Currently on moderate sliding scale Lantus 20 units daily, will increase to lantus 28u qd as glucose still in low 300's. sometimes went to 250's Currently on a consistent carb diet. will attempt diabetic at home pt states she will likely not be able to afford lantus in OP setting. does not wish to be on insulin unless necessary. lengthy discussion had with pt. may be NPH candidate given cost When discharging will review what medication should be started, and arrange outpatient follow-up she wishes to follow-up with Dr. Piedra who she is s een recently (3) COPD (chronic obstructive pulmonary disease): DuoNeb as needed will be initiated (4) Bipolar disorder: Patient reports on no medicine. States control is fair currently Plan I would recommend 1 more overnight stay for post-appendectomy recovery and glucose management Other medical problems as listed in past medical history Thank you for this consultation Heparin for DVT prophylaxis Attestations Medical Necessity Statement*: post operative care and glucose management Coding Level of Care Code 08831 Diagnoses Acute appendicitis K35.80 Uncontrolled diabetes mellitus COPD (chronic obstructive pulmonary disease) J44.9 Bipolar disorder F31.9
[2022-09-09] MEDS: levofloxacin-dextrose 5 % 750 MG/150 ML PREMIX 100 MG IV (16:07)
--- NOTE | 2022-09-09 16:13 | P.PN_ITS ---
Subjective Subjective: I still don't feel well. My bowels haven't move. The drain is still in. Vitals/I&O/Wt Last Vital Signs Temp 99.2 F 09/09/22 15:33 Pulse 87 09/09/22 15:33 Resp 17 09/09/22 15:33 BP 123/72 09/09/22 15:33 Pulse Ox 93 09/09/22 15:33 O2 Del Method Room Air 09/09/22 08:23 O2 Flow Rate 1.5 09/09/22 03:21 09/09/22 09/09/22 09/09/22 06:59 14:59 22:59 Intake Total 100 / 2650 1080 / 1080 Output Total 25 / 25 Balance 100 / 2650 1055 / 1055 Physical Exam GI: OTHER: Drain removed this a.m. Abdomen otherwise unremarkable. No drainage or cellulitis. Data 09/09/22 10:33 09/10/22 04:57 A&P Assessment and plan (1) Appendicitis with peritonitis: Plan Bowel issues persist post appendectomy. Plan dismissal in a.m. tomorrow. Attestations Medical Necessity Statement*: Patient hospitalized for acute appendicitis and still has not had return of bowel function. Anticipate stay of 2 days. Coding Level of Care Code Acute Code for [facility] Diagnoses Appendicitis with peritonitis K35.33
[2022-09-09 17:13] LABS: Glucose Point of Care 197 mg/dL (70-110)
[2022-09-09 20:49] LABS: Glucose Point of Care 236 mg/dL (70-110)
[2022-09-09] MEDS: ondansetron 2 mg/ML SDV 2 mL 4 MG IVP (21:22)
[2022-09-10] VITALS (7 sets, daily range): BP systolic 107–115; BP diastolic 66–72; PULSE 80–84; RESP 16–22; TEMP 36.4–36.7; O2SAT 90–94
[2022-09-10] MEDS: oxyCODONE-APAP 5-325 mg Tablet 1 TAB PO ×2 (00:31→05:14)
[2022-09-10] MEDS: metroNIDAZOLE IV 500 MG/100 ML PREMIX 100 MG IV ×2 (01:24→10:00)
[2022-09-10 05:45] LABS: Alanine Aminotransferase 7 U/L (0-33); Albumin Level 2.6 g/dL (3.5-5.2); Alkaline Phosphatase 89 U/L (35-105); Anion Gap 12.6 (5-19); Aspartate Amino Transferase 6 U/L (0-32); Blood Urea Nitrogen 9 mg/dL (8-23); Carbon Dioxide 23 mmol/L (22-29); Chloride 101 mmol/L (98-107); Globulin 2.7 g/dL (1.3-4.6); Glomerular Filtration Rate 161.2 mL/min (90-130); Glucose 226 mg/dL (65-115); Osmolality Calculated 282 mOsm/kg (285-295); Potassium 3.6 mmol/L (3.5-5.1); Sodium 133 mmol/L (136-145); Total Bilirubin 0.2 mg/dL (0.15-1.2); Total Protein 5.3 g/dL (6.6-8.7)
[2022-09-10 05:57] LABS: Creatinine Clr Calc Pharmacy 151.6013
[2022-09-10 06:36] LABS: Glucose Point of Care 251 mg/dL (70-110)
[2022-09-10] MEDS: heparin 5,000 unit/mL INJ 1 mL 5000 UNIT SUBCUT (06:45)
[2022-09-10] MEDS: docusate sodium 100 mg Capsule PO (09:53)
[2022-09-10] MEDS: insulin lispro 100 unit/1 mL SUBCUT (09:53)
[2022-09-10] MEDS: pantoprazole DR 40 mg Tablet PO (09:53)
--- NOTE | 2022-09-10 09:53 | P.DS_ITS ---
Discharge Providers Date of Admission: 09/07/22 07:29 Date of Discharge: September 10, 2022 Attending Provider at Admission: Raul Puente DO Attending Provider at Discharge: Satinder Patel MD Diagnoses at Discharge Discharge Diagnosis (1) Acute appendicitis: Status: Acute (2) Uncontrolled diabetes mellitus: Status: Acute (3) COPD (chronic obstructive pulmonary disease): Status: Acute (4) Bipolar disorder: Status: Acute Reason for Visit Reason for Visit: abd pain Hospital Course Hospital Course Admitted on 09/07/22 with acute appendicitis and taken to OR for laparoscopic appendectomy. Diet initiated postoperatively, and drain removed on 09/09/22. Stable on 09/10/22 and plans made for discharge. Discharge Data Studies Completed and Pending Completed Studies During Hospitalization Category Date Time Status CT abdomen pelvis w con* [id number] Stat Cat Scan 09/07/22 05:22 Completed Pending at discharge Category Date Time Status Pathology: Surgical [PTH] Routine Pth 09/07/22 18:44 Received Radiology Impressions Abdomen/Pelvis CT 09/07/22 05:22 IMPRESSION: 1. Acute appendicitis. No sign of perforation. 2. 9 mm hypodense splenic nodule. For patients without or with history of cancer, recommend follow-up MRI in 6-12 months. 3. Incidental findings above. ADDENDUM: 09/07/22 0731 THIS REPORT CONTAINS FINDINGS THAT MAY BE CRITICAL TO PATIENT CARE. The findings were communicated via written report. Receipt and understanding of the findings was acknowledged by Dr Garcia at 7:30 AM CDT on 09/07/2022. Laboratory Results WBC 8.8 10^3/uL (4.0-10.0) 09/09/22 10:33 RBC 4.38 10^6/uL (4.1-5.3) 09/09/22 10:33 Hgb 12.8 g/dL (11.5-15.3) 09/09/22 10:33 Hct 40.3 % (37.0-47.0) 09/09/22 10:33 MCV 92.0 fl (81-99) 09/09/22 10:33 MCH 29.2 pg (28.0-34.0) 09/09/22 10:33 MCHC 31.8 g/dL (30.0-36.0) 09/09/22 10:33 RDW 12.6 % (12.1-15.1) 09/09/22 10:33 Plt Count 214 10^3/cmm (130-400) 09/09/22 10:33 MPV 10.3 fL (7.4-10.4) 09/09/22 10:33 Neut % (Auto) 83.5 % 09/09/22 10:33 Lymph % (Auto) 7.9 % 09/09/22 10:33 Hodgeman % (Auto) 7.3 % 09/09/22 10:33 Eos % (Auto) 0.7 % 09/09/22 10:33 Baso % (Auto) 0.3 % 09/09/22 10:33 Neut # (Auto) 7.30 10^3/uL (1.8-7.7) 09/09/22 10:33 Lymph # (Auto) 0.7 10^3/uL (0.8-4.8) L 09/09/22 10:33 Hodgeman # (Auto) 0.6 10^3/uL (0.2-0.9) 09/09/22 10:33 Eos # (Auto) 0.1 10^3/uL (0.0-0.8) 09/09/22 10:33 Baso # (Auto) 0.0 10^3/uL (0.0-0.1) 09/09/22 10:33 Nucleated RBC % (auto) 0 % 09/09/22 10:33 Nucleated RBCs # 0.0 /100WBC 09/09/22 10:33 Sodium 133 mmol/L (136-145) L 09/10/22 04:57 Potassium 3.6 mmol/L (3.5-5.1) 09/10/22 04:57 Chloride 101 mmol/L (98-107) 09/10/22 04:57 Carbon Dioxide 23 mmol/L (22-29) 09/10/22 04:57 Anion Gap 12.6 (5-19) 09/10/22 04:57 BUN 9 mg/dL (8-23) 09/10/22 04:57 Creatinine 0.4 mg/dL (0.5-0.9) L 09/10/22 04:57 GFR Calculation 161.2 mL/min (90-130) H 09/10/22 04:57 Glucose 226 mg/dL (65-115) H 09/10/22 04:57 POC Glucose 251 mg/dL (70-110) H 09/10/22 06:31 Estimat Average Glucose 344 09/07/22 05:30 Hemoglobin A1c 13.6 % (4.0-6.0) H 09/07/22 05:30 Calculated Osmolality 282 mOsm/kg (285-295) L 09/10/22 04:57 Calcium 8.0 mg/dL (8.5-10.5) L 09/10/22 04:57 Total Bilirubin 0.2 mg/dL (0.15-1.2) 09/10/22 04:57 AST 6 U/L (0-32) 09/10/22 04:57 ALT 7 U/L (0-33) 09/10/22 04:57 Alkaline Phosphatase 89 U/L (35-105) 09/10/22 04:57 Total Protein 5.3 g/dL (6.6-8.7) L 09/10/22 04:57 Albumin 2.6 g/dL (3.5-5.2) L 09/10/22 04:57 Globulin 2.7 g/dL (1.3-4.6) 09/10/22 04:57 Lipase 32 U/L (13-60) 09/07/22 05:30 TSH 3.91 uIU/mL (0.27-4.20) 09/07/22 05:30 Urine Color Light yellow (Yellow) 09/07/22 06:33 Urine Appearance Clear (CLEAR) 09/07/22 06:33 Urine pH 6 (5-7) 09/07/22 06:33 Ur Specific Gary 1.015 (1.005-1.030) 09/07/22 06:33 Urine Protein Neg (Negative) 09/07/22 06:33 Urine Glucose (UA) 4+ (Normal) H 09/07/22 06:33 Urine Ketones 2+ (Negative) H 09/07/22 06:33 Urine Blood Neg (Negative) 09/07/22 06:33 Urine Nitrate Negative (Negative) 09/07/22 06:33 Urine Bilirubin Neg (Negative) 09/07/22 06:33 Urine Urobilinogen Neg mg/dL (Negative) 05/04/23 06:33 Ur Leukocyte Esterase Negative (Negative) 09/07/22 06:33 Procedures Performed Laparoscopic appendectomy on 09/07/2022 Vitals Last Vital Signs Temp 98 F 09/10/22 08:00 Pulse 80 09/10/22 08:00 Resp 16 09/10/22 08:00 BP 115/70 09/10/22 08:00 Pulse Ox 94 09/10/22 08:00 O2 Del Method Room Air 09/10/22 08:00 O2 Flow Rate 1.5 09/09/22 03:21 Discharge Plan Discharge Patient Disposition: Home Condition: Stable Prescriptions: New (DME) Blood Glucose Monitoring Kit See Rx Instructions .Route Qty: 1 0RF Rx Instructions: As directed levofloxacin 750 mg tablet 750 mg PO DAILY 5 Days Qty: 5 0RF insulin glargine [Basaglar KwikPen U-100 Insulin] 100 unit/mL (3 mL) insulin pen 20 unit SUBCUT DAILY Qty: 15 0RF insulin lispro [Humalog KwikPen Insulin] 100 unit/mL insulin pen 10 unit SUBCUT TID Qty: 15 0RF Continued omeprazole 20 mg capsule,delayed release(DR/EC) 20 mg PO DAILY PRN (Reason: Heartburn) turmeric 400 mg capsule 400 mg PO DAILY PRN (Reason: unknown) Vagisil 5-2 % Cream 1 applic TOPICAL BID PRN (Reason: unknown) Tylenol Ex Str Rapid Release 500 mg Tablet 1,000 - 1,500 mg PO Q6H PRN (Reason: Pain) oxycodone-acetaminophen 5-325 mg Tablet 1 tab PO .ONE TIME DOSE nystatin 100,000 unit/gram powder 1 applic TOPICAL TID albuterol sulfate 90 mcg/actuation HFA aerosol inhaler 2 puff INHALATION .EVERY 4-6 HOURS PRN (Reason: Shortness Of Breath) Emergen-C 1,000 mg Powder Effervescent In Packet 1 ea PO DAILY Cbd Oil See Rx Instructions .ROUTE .COMPLEX Rx Instructions: as directed as needed Tonic Water With Quinine See Rx Instructions .ROUTE .COMPLEX Rx Instructions: drinks once a day Discharge Orders: Discharge Order (Routine); Ordered 09/10/22 Ordered By: Satinder Patel Referrals: Morris Shen MD [Physician] - Discharge Diet: Diabetic Patient Instructions: Opioid Safety, Post Anesthesia Care Discharge Attestations Time Spent in Discharge Care*: greater than 30 min Quality Metrics Clinical Quality Measures [ No reported AMI, CVA or VTE this stay] Coding Level of Care Code Acute Code for Chg Fwd Diagnoses Acute appendicitis K35.80 Uncontrolled diabetes mellitus COPD (chronic obstructive pulmonary disease) J44.9 Bipolar disorder F31.9
[2022-09-10] MEDS: insulin glargine 100 units/1 mL 28 UNIT SUBCUT (09:54)
[2022-09-10 10:39] LABS: Glucose Point of Care 287 mg/dL (70-110)
--- NOTE | 2022-09-10 12:00 | PC.NURSE ---
IV removed intact patient tolerated well. Patient is A&Ox3. Respirations even and non-labored on room air. Reviewed patient discharge with patient and sister. Patient is adamant that she is not going to take the insulin. Patient states, I am not even going to pick it up from the pharmacy. Attempted to teach patient how to use insulin syringe. Patient states, I am ready to leave and I don't care because I am not going to take it I said. Reviewed antibiotic with patient and follow up appointment to which patient responds I am not going to follow up with anyone anyway. Patient signed discharge papers and was wheel chaired to private car.
== END 2022-09-10 12:00 | disposition home or self-care (01) ==
LOC: ER 08:35 → MEDSURG 09:48
PROVIDERS: Emergency Medicine; Family Medicine; Internal Medicine; Admitting Provider Surgery; Emergency Provider Family Medicine; Visit Provider Surgery
PROC: 0DTJ4ZZ Resection of Appendix, Percutaneous Endoscopic Approach (ICD-10-PCS; CPT 44970; principal; 2022-09-07 16:45)
DX: K35.80 Unspecified acute appendicitis (principal); E11.9 Type 2 diabetes mellitus without complications; J44.9 Chronic obstructive pulmonary disease, unspecified; F31.9 Bipolar disorder, unspecified; K21.9 Gastro-esophageal reflux disease without esophagitis; Z79.899 Other long term (current) drug therapy
CPT/HCPCS: 44970; 36415; 36416; 74177; 80048; 80053; 81003; 82962; 83036; 83690; 84443; 85025; 88304; 93005; 96365; 96372; 96375; 96376; 99285; C9113; G0378; J0330; J1100; J1200; J1644; J1815; J1956; J2250; J2270; J2370; J2405; J2543; J2704; J2710; J3010; J3490; J7030; Q9967

== ENCOUNTER 2024-04-08 11:30 | Outpatient (CLI) | payer MEDICARE, SELFPAY ==
--- NOTE | 2024-04-08 11:34 | MM_ITS ---
WS: [id number] VIEWS: MLO and CC views both breasts. 3D digital tomosynthesis is also included in this exam. Comparison made with prior exam of 09/01/2019. Findings: There are scattered areas of fibroglandular density. No mass, tumor calcification or architectural distortion. MM/MM scr BI tomosynthesis [id number] Impression: BI-RADS: 2 - Benign. FOLLOW-UP: 1 Year Follow-up This mammogram was also analyzed by the Computer Aided Detection System [employer]2 [employer].
== END 2024-04-08 11:31 | disposition home or self-care (01) ==
LOC: RAD 11:31
PROVIDERS: PCP Nurse Practitioner Family; Visit Provider Nurse Practitioner Family
DX: Z12.31 Encounter for screening mammogram for malignant neoplasm of breast (principal); R92.323 Mammographic fibroglandular density, bilateral breasts
CPT/HCPCS: 77063; 77067

== ENCOUNTER → 2024-04-18 10:26 | Outpatient (BNVA) | payer MEDICARE, SELFPAY | PROVIDERS: PCP Nurse Practitioner Family; Visit Provider Podiatrist Foot & Ankle Surgery | DX: M79.671 Pain in right foot (principal); M79.672 Pain in left foot; E11.9 Type 2 diabetes mellitus without complications; M72.2 Plantar fascial fibromatosis; M19.071 Primary osteoarthritis, right ankle and foot; M19.072 Primary osteoarthritis, left ankle and foot; Z79.4 Long term (current) use of insulin | CPT/HCPCS: 73630; 99203 ==

== ENCOUNTER → 2024-06-13 08:52 | Outpatient (BNVA) | payer MEDICARE, SELFPAY | PROVIDERS: PCP Nurse Practitioner Family; Visit Provider Nurse Practitioner Family | DX: L30.4 Erythema intertrigo (principal); L81.4 Other melanin hyperpigmentation; L57.8 Other skin changes due to chronic exposure to nonionizing radiation; L98.1 Factitial dermatitis; L57.0 Actinic keratosis | CPT/HCPCS: 17000; 99204 ==

== ENCOUNTER → 2024-07-17 10:32 | Outpatient (BNVA) | payer MEDICARE, SELFPAY | PROVIDERS: PCP Nurse Practitioner Family; Visit Provider Podiatrist Foot & Ankle Surgery | DX: E11.42 Type 2 diabetes mellitus with diabetic polyneuropathy (principal); L60.3 Nail dystrophy; M72.2 Plantar fascial fibromatosis; G62.9 Polyneuropathy, unspecified; Z79.4 Long term (current) use of insulin | CPT/HCPCS: 11721 ==

== ENCOUNTER → 2024-08-14 13:34 | Outpatient (BNVA) | payer MEDICARE, SELFPAY | PROVIDERS: PCP Nurse Practitioner Family; Visit Provider Nurse Practitioner Family | DX: L30.4 Erythema intertrigo (principal); L81.4 Other melanin hyperpigmentation; L57.8 Other skin changes due to chronic exposure to nonionizing radiation; L98.1 Factitial dermatitis; I87.2 Venous insufficiency (chronic) (peripheral); L85.3 Xerosis cutis | CPT/HCPCS: 99214 ==

== ENCOUNTER → 2024-09-18 10:40 | Outpatient (BNVA) | payer MEDICARE, SELFPAY | PROVIDERS: PCP Nurse Practitioner Family; Visit Provider Podiatrist Foot & Ankle Surgery | DX: E11.42 Type 2 diabetes mellitus with diabetic polyneuropathy (principal); L60.3 Nail dystrophy; M72.2 Plantar fascial fibromatosis; G62.9 Polyneuropathy, unspecified | CPT/HCPCS: 11721 ==

== ENCOUNTER → 2024-11-14 11:01 | Outpatient (BNVA) | payer MEDICARE, SELFPAY | PROVIDERS: PCP Nurse Practitioner Family; Visit Provider Nurse Practitioner Family | DX: L30.4 Erythema intertrigo (principal); L81.4 Other melanin hyperpigmentation; L57.8 Other skin changes due to chronic exposure to nonionizing radiation; L98.1 Factitial dermatitis | CPT/HCPCS: 99214 ==

== ENCOUNTER → 2024-11-20 11:15 | Outpatient (BNVA) | payer MEDICARE, SELFPAY | PROVIDERS: PCP Nurse Practitioner Family; Visit Provider Podiatrist Foot & Ankle Surgery | DX: E11.42 Type 2 diabetes mellitus with diabetic polyneuropathy (principal); L60.3 Nail dystrophy; M72.2 Plantar fascial fibromatosis; G62.9 Polyneuropathy, unspecified; Z79.4 Long term (current) use of insulin | CPT/HCPCS: 11721 ==

== ENCOUNTER 2024-12-31 07:43 | Outpatient (CLI) | payer MEDICARE, SELFPAY ==
--- NOTE | 2024-12-31 07:49 | CT_ITS ---
WS: [id number] CT HEAD TECHNIQUE: Noncontrast CT of the head obtained from the skullbase to the vertex. CLINICAL INFORMATION: INJURY OF HEAD COMPARISON: None. DLP: 1003.[address] scans at [facility] use at least one of these dose optimization techniques: automated exposure control; mA and/or kV adjustment per patient size (includes targeted exams where dose is matched to clinical indication); or iterative reconstruction. FINDINGS: No evidence of intracranial hemorrhage or mass effect. Ventricular system and basal cisterns are patent. Mild small vessel changes with mild parenchymal volume loss. No extra-axial fluid collections. No evidence of mass or mass effect. Normal morgan-white differentiation. Paranasal sinuses and mastoid air cells are well aerated. CT/CT head wo con* [id number] IMPRESSION: 1. No evidence of intracranial hemorrhage or mass effect. 2. No acute intracranial findings.
== END 2024-12-31 07:44 | disposition home or self-care (01) ==
LOC: RAD 07:44
PROVIDERS: PCP Nurse Practitioner Family; Visit Provider Nurse Practitioner Family
DX: S09.90XA Unspecified injury of head, initial encounter (principal); X58.XXXA Exposure to other specified factors, initial encounter; R93.0 Abnormal findings on diagnostic imaging of skull and head, not elsewhere classified
CPT/HCPCS: 70450

== ENCOUNTER → 2025-01-28 14:57 | Outpatient (BNVA) | payer MEDICARE, SELFPAY | PROVIDERS: PCP Nurse Practitioner Family; Visit Provider Podiatrist Foot & Ankle Surgery | DX: E11.42 Type 2 diabetes mellitus with diabetic polyneuropathy (principal); L60.3 Nail dystrophy; L84 Corns and callosities; M72.2 Plantar fascial fibromatosis; G62.9 Polyneuropathy, unspecified; Z79.4 Long term (current) use of insulin | CPT/HCPCS: 11056; 11721 ==

== ENCOUNTER → 2025-02-05 12:59 | Outpatient (BNVA) | payer MEDICARE, SELFPAY | PROVIDERS: PCP Nurse Practitioner Family; Visit Provider Nurse Practitioner Family | DX: L57.8 Other skin changes due to chronic exposure to nonionizing radiation (principal); L81.4 Other melanin hyperpigmentation; L98.1 Factitial dermatitis; L30.9 Dermatitis, unspecified | CPT/HCPCS: 11104; 99214 ==

== ENCOUNTER → 2025-02-16 15:02 | Outpatient (BNVA) | payer MEDICARE, SELFPAY | PROVIDERS: PCP Nurse Practitioner Family; Visit Provider Nurse Practitioner Family | DX: S30.861A Insect bite (nonvenomous) of abdominal wall, initial encounter (principal); X58.XXXA Exposure to other specified factors, initial encounter; L23.7 Allergic contact dermatitis due to plants, except food | CPT/HCPCS: 99213 ==